=== PATIENT | male | born 1950 | race Caucasian/White ===

== ENCOUNTER → 2016-05-14 | Outpatient (CLI) | payer MEDICARE ==
[2015-09-05 14:57] VITALS: BP 119/63
[~2016-05-14] MED LIST: ACET500T33 PO; ASPI325T4 PO; CALC-52 PO; CEFD300C PO; CELE400C PO; HYDR-2762 PO; METAMUCIL425 GM PO; METO25TA4 PO; NAPR220C4 PO; NIAC500T9 PO; OMEG1CAP39 PO; OMEP20TA PO; PANT40TA5 PO; SAW450CA2 PO; SOLI5TAB PO; TAMS0.4C2 PO
[2016-05-14 12:45] LABS: BILIRUBIN,URINE NEGATIVE (NEG); GLUCOSE,URINE NEGATIVE (NEG); NITRITE,URINE NEGATIVE (NEG); PROTEIN,URINE NEGATIVE (NEG-TRACE); UROBILINOGEN,URINE 0.2 mg/dL (0.2 mg/dL)
[2016-05-14 13:04] LABS: BACTERIA,URINE 0 /HPF (0-FEW); WBC,URINE OCC /HPF (0-4)
== END | disposition home or self-care (01) ==
LOC: LAB 11:38
PROVIDERS: ATTEND Nurse Practitioner Occupational Health
DX: Z12.5 Encounter for screening for malignant neoplasm of prostate (principal)
CPT/HCPCS: 36415; 81001; G0103

== ENCOUNTER → 2016-05-21 | Outpatient (CLI) | payer MEDICARE ==
[2015-09-05 14:57] VITALS: BP 119/63
[~2016-05-21] MED LIST changes: +DABI150C PO; +FLEC100T PO; +GABA-586 PO
[2016-07-03 07:14] LABS: ALBUMIN 3.6 g/dL (3.4-5.0); ALBUMIN/GLOBULIN RATIO 1.1 (1.0-1.7); TOTAL PROTEIN 6.9 g/dL (6.4-8.2)
[2016-07-03 07:15] LABS: CALCIUM 9.4 mg/dL (8.5-10.1); CREATININE 1.3 mg/dL (0.7-1.3); GFR 55.1; POTASSIUM 4.3 mmol/L (3.5-5.1); TOTAL BILIRUBIN 0.5 mg/dL (0.2-1.0)
== END | disposition home or self-care (01) ==
LOC: LAB 09:54
PROVIDERS: ATTEND Internal Medicine Cardiovascular Disease
DX: I48.0 Paroxysmal atrial fibrillation (principal)
CPT/HCPCS: 36415; 80053

== ENCOUNTER → 2016-05-22 | Outpatient (CLI) | payer MEDICARE ==
[2015-09-05 14:57] VITALS: BP 119/63
[2016-05-21 10:36] LABS: ALBUMIN 3.6 g/dL (3.4-5.0); ALBUMIN/GLOBULIN RATIO 1.1 (1.0-1.7); CALCIUM 9.4 mg/dL (8.5-10.1); CREATININE 1.3 mg/dL (0.7-1.3); GFR 55.1; POTASSIUM 4.3 mmol/L (3.5-5.1); TOTAL BILIRUBIN 0.5 mg/dL (0.2-1.0); TOTAL PROTEIN 6.9 g/dL (6.4-8.2)
[~2016-05-22] MED LIST changes: -DABI150C PO; -FLEC100T PO; -GABA-586 PO
--- NOTE | 2016-05-22 13:56 | RAD ---
EXAM: Renal sonogram. HISTORY: Enlarged prostate. TECHNIQUE: Sonographic imaging of the kidneys and bladder was performed. COMPARISON: None. FINDINGS: The right kidney measures 11.7 cm [id number] and the left kidney measures 11.4 cm [id number]-sy-jrgc. No solid or cystic renal lesion is seen. There is no hydronephrosis. The aorta and inferior cava are partially obscured due to bowel gas. The ureteral jets are both seen. The prostate measures 5.8 cm in maximum dimension with a volume of 65 cc. IMPRESSION: 1. Sonographically unremarkable kidneys. 2. Mildly enlarged prostate with a volume of 65 cc.
== END | disposition home or self-care (01) ==
LOC: US 12:22
PROVIDERS: ATTEND Nurse Practitioner Occupational Health
DX: N40.1 Benign prostatic hyperplasia with lower urinary tract symptoms (principal)
CPT/HCPCS: 36415; 76770; 80053

== ENCOUNTER 2016-06-21 06:39 | Day surgery (SDC) | payer MEDICARE ==
[~2016-06-21 06:39] MED LIST changes: +DABI150C PO; +FLEC100T PO; +GABA-586 PO
[2016-06-21] MEDS ORDERED: IV RINGERS,LACTATED 1000ML 1,000 ML IV SCH (07:00)
[2016-06-21] MEDS ORDERED: LIDOCAINE 2% TOPICAL JELLY 30GM TUBE. TP ONE (07:38)
[2016-06-21] MEDS ORDERED: LIDOCAINE 2% VISCOUS 15 ML SOLUTION. ONE (07:38)
[2016-06-21] MEDS ORDERED: BENZOCAINE ONE 20% MUCOSAL SPRAY. (07:38)
[2016-06-21 08:49] VITALS: BP 116/59
--- NOTE | 2016-06-21 09:48 | CARD ---
APPROVED REPORT EXAM: Transesophageal echocardiogram with color flow Doppler. INDICATION Atrial Fibrillation Reason For Test : Preoperative evaluation. PROCEDURE After obtaining informed consent, patient underwent transesophageal echo in the PACU. Type of Sedation : General Anesthesia Sedation was provided by anesthesiologist, see EMR for medications administered. Transesophageal probe was inserted and advanced into esophagus by Phong Molina MD. The JOSE was performed without complications. Throughout the procedure, the blood pressure, pulse oximetry, cardiac rhythm, and rate were monitored . The patient tolerated the procedure without adverse effects. Recovery from conscious sedation was une ventful and vital signs were stable. LEFT VENTRICLE The left ventricle is normal size. There is normal left ventricular wall thickness. Left ventricle sy stolic function is normal. The Ejection Fraction is 50-55%. There is normal LV segmental wall motion. No left ventricle thrombus noted on this study. RIGHT VENTRICLE The right ventricle is normal size. The right ventricular systolic function is normal. ATRIA The left atrium is mildly dilated. The right atrium size is normal. The interatrial septum is intact with no evidence for an atrial septal defect or patent foramen ovale as noted on 2-D or Doppler imagi ng. There is no thrombus noted in the left atrial appendage. AORTIC VALVE The aortic valve is normal in structure and function. The aortic valve is trileaflet. Doppler and Col or Flow revealed no significant aortic regurgitation. There is no significant aortic valvular stenosi s. MITRAL VALVE The mitral valve is normal in structure. There is no mitral valve stenosis. Doppler and Color Flow re vealed mild mitral regurgitation. TRICUSPID VALVE The tricuspid valve is normal in structure and function. Doppler and Color Flow revealed no tricuspid valve regurgitation noted. PULMONIC VALVE The pulmonic valve is not well visualized. GREAT VESSELS The aortic root is normal in size. The ascending aorta is normal in size. Normal pulmonary venous emerald w (Doppler). The IVC was visualized and appears normal in size. The SVC was visualized and appears no rmal in size. Critical Notification Critical Value: No <Conclusion> Left ventricle systolic function is normal. The Ejection Fraction is 50-55%. There is normal LV segmental wall motion. The left atrium is mildly dilated. The interatrial septum is intact with no evidence for an atrial septal defect or patent foramen ovale as noted on 2-D or Doppler imaging. There is no thrombus noted in the left atrial appendage. Smoke is noted in the LA and NATHALIE suggestive of slow flow state.
== END 2016-06-21 09:17 | disposition home or self-care (01) ==
LOC: SURG 06:39
PROVIDERS: ATTEND Internal Medicine Cardiovascular Disease
DX: I48.91 Unspecified atrial fibrillation (principal); I51.9 Heart disease, unspecified; M19.90 Unspecified osteoarthritis, unspecified site; Z87.440 Personal history of urinary (tract) infections; Z96.612 Presence of left artificial shoulder joint; Z87.891 Personal history of nicotine dependence
CPT/HCPCS: 76376; 93312; 93325

== ENCOUNTER → 2016-09-04 | Outpatient (CLI) | payer MEDICARE ==
[~2016-09-04] MED LIST changes: -ASPI325T4 PO; +ASPI325T8 PO; +CONTRAST GIVEN MC PRN; +IOHEXOL 300 MG/ML 75 ML VIAL IV ONE; +OMEG-152 PO; -OMEG1CAP39 PO; -OMEP20TA PO; +OMEP20TA8 PO; -SOLI5TAB PO; +SOLI5TAB2 PO
[2016-09-04 08:12] LABS: CREATININE 1.2 mg/dL (0.7-1.3); GFR 60.2
--- NOTE | 2016-09-04 11:00 | RAD ---
CT of the abdomen and pelvis with and without contrast, (CT urogram) 09/04/2016: History: Hematuria Multidetector CT imaging was performed prior to and following an IV bolus injection of iodinated contrast material. The postcontrast scans were obtained through the kidneys in the nephrographic phase and through the entire urinary tract in an excretory phase. 3-D MIP reconstructions of the urinary tract were produced from the excretory phase data. No oral contrast material was administered for this exam. No intrarenal calculi were identified. There is no evidence of a renal mass. There are prominent extrarenal pelves bilaterally. The ureters are not dilated. No ureteral calculus is seen. 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 There is moderate diffuse thickening of the bladder carias. The prostate gland is enlarged measuring 5.5 cm in width. Several prostatic calcifications are noted. There are mild reticulonodular opacities in the lung bases which have progressed since 03/22/2015. This may represent worsening interstitial lung disease although superimposed interstitial edema and/or infection cannot be excluded. No hepatic abnormality is detected. There are faint radiopacities along the posterior aspect of the gallbladder suggesting tiny calculi. These were also evident on the previous study of 03/22/2015. No pancreatic abnormality is detected. The spleen is of normal size. No adrenal abnormality is detected. There is moderate aortoiliac calcific plaquing without evidence of aneurysm. No abdominal or pelvic adenopathy is seen. There is colonic diverticulosis, most extensive in the sigmoid and descending colon. No paracolonic inflammatory process is seen. No free fluid is evident in the abdomen or pelvis. There is moderate multilevel degenerative change in the spine. There is bilateral spondylolysis at L5. There is slight associated spondylolisthesis at L5-S1. IMPRESSION: 1. No significant renal abnormality is detected. 2. Duplication of the distal right ureter. 3. Moderate diffuse bladder wall thickening probably secondary to chronic bladder outlet obstruction in this patient with an enlarged prostate gland. 4. Probable cholelithiasis. 5. Extensive colonic diverticulosis. 6. Worsening mild bibasilar reticulonodular opacities. PQRS Compliance Statement: One or more of the following individualized dose reduction techniques were utilized for this examination: 1. Automated exposure control 2. Adjustment of the mA and/or kV according to patient size 3. Use of iterative reconstruction technique
== END | disposition home or self-care (01) ==
LOC: CT 08:35
PROVIDERS: ATTEND Nurse Practitioner Occupational Health
DX: R31.9 Hematuria, unspecified (principal)
CPT/HCPCS: 36415; 74178; 82565; Q9967

== ENCOUNTER → 2017-07-12 | Outpatient (CLI) | payer MEDICARE | END | disposition home or self-care (01) | LOC: CT 09:21 | DX: J84.9 Interstitial pulmonary disease, unspecified (principal); I25.10 Atherosclerotic heart disease of native coronary artery without angina pectoris; J84.10 Pulmonary fibrosis, unspecified; R91.8 Other nonspecific abnormal finding of lung field | CPT/HCPCS: 71250 ==

== ENCOUNTER → 2018-07-04 | Outpatient (CLI) | payer MEDICARE ==
[~2018-07-04] MED LIST changes: -CONTRAST GIVEN MC PRN; -GABA-586 PO; +GABA300C18 PO; -HYDR-2762 PO; +HYDR-2765 PO; -IOHEXOL 300 MG/ML 75 ML VIAL IV ONE; -SAW450CA2 PO; +SAW450CA7 PO
--- NOTE | 2018-07-04 14:18 | RAD ---
CT of the chest without contrast, 07/04/2018: HISTORY: Interstitial lung disease Noncontrast scans were obtained as requested and compared to a study from 07/12/2017. There are ongoing reticular opacities in the periphery of both lungs with dominant involvement of the lower lobes. There has been slight interval worsening in several areas. There is a stable linear opacity in the left upper chest compatible with a scar. No pulmonary mass or dense consolidation is seen. There is no evidence of pleural fluid. There is mild calcific plaquing of the thoracic aorta without evidence of aneurysm. Several coronary artery calcifications are noted. There is mild mediastinal adenopathy which has worsened slightly. For example a subcarinal lymph node which measured 1.3 cm in greatest AP dimension on the previous study now measures 1.6 cm. A small right paratracheal lymph node which measured 8 mm on the previous study now measures 11 mm. Several small radiopacities are now evident in the dependent aspect of the gallbladder compatible with cholelithiasis. IMPRESSION: 1. Slight interval worsening of the interstitial lung disease since 07/12/2017. 2. Mild mediastinal adenopathy is worsened slightly. 3. Cholelithiasis PQRS Compliance Statement: One or more of the following individualized dose reduction techniques were utilized for this examination: 1. Automated exposure control 2. Adjustment of the mA and/or kV according to patient size 3. Use of iterative reconstruction technique Electronically signed by: Isaias Pizarro MD (07/04/2018 2:15 PM) [facility]
== END | disposition home or self-care (01) ==
LOC: CT 15:43
PROVIDERS: ATTEND Internal Medicine Critical Care Medicine
DX: J84.9 Interstitial pulmonary disease, unspecified (principal); R59.0 Localized enlarged lymph nodes; K80.20 Calculus of gallbladder without cholecystitis without obstruction; R91.8 Other nonspecific abnormal finding of lung field; I70.0 Atherosclerosis of aorta; I25.10 Atherosclerotic heart disease of native coronary artery without angina pectoris
CPT/HCPCS: 71250

== ENCOUNTER → 2019-09-28 | Outpatient (CLI) | payer BC, MEDICARE ==
[~2019-09-28] MED LIST changes: -PANT40TA5 PO; +PANT40TA77 PO
--- NOTE | 2019-09-28 10:59 | CARD ---
MR#: [id number] Date of Study: 09/28/2019 Ordering Physician: REBEKAH PADRON, Referring Physician: REBEKAH PADRON Tech: Toya Elizalde RDCS APPROVED REPORT EXAM: Two-dimensional and M-mode echocardiogram with Doppler and color Doppler. Other Information Quality : Good INDICATION Paroxysmal Atrial Fibrillation 2D DIMENSIONS RVDd2.8 (2.9-3.5cm)Left Atrium(2D)3.9 (1.6-4.0cm) IVSd0.8 (0.7-1.1cm)Aortic Root(2D)3.0 (2.0-3.7cm) LVDd4.6 (3.9-5.9cm)LVOT Diameter2.0 (1.8-2.4cm) PWd0.6 (0.7-1.1cm)LVDs2.9 (2.5-4.0cm) FS (%) 36.9 %SV65.5 ml LVEF(%)60.0 (>50%) Aortic Valve AoV Peak Gilmar.127.3cm/sAoV VTI23.4cm AO Peak GR.6.5mmHgLVOT VTI 24.74cm AO Mean GR.3mmHgAVA (VTI)3.18cm2 AI P 1/2 Utct808sx Mitral Valve MV E Bnqbewqw57.4cm/sMV DECEL AVNZ279yc MV A Wbogsppd53.1cm/sE/A Ratio1.2 TDI Lateral E' P. V3.48cm/sMedial E' P. V5.41cm/s E/Lateral E'22.2E/Medial E'14.3 Tricuspid Valve TR P. Dqkhtsdx280yo/sRAP EVHEALGS9lvBd TR Peak Gr.80yyLqUCDQ58utBw Pulmonary Vein S1 Bfjlrdtm53.9cm/sS2 Nytdbces07.91cm/s D2 Gpdabzrn54.9cm/s LEFT VENTRICLE The left ventricle is normal size. There is normal left ventricular wall thickness. The left ventricu lar systolic function is normal. The Ejection Fraction is 55-60%. There is normal LV segmental wall m otion. Transmitral Doppler flow pattern is Grade II-pseudonormal filling dynamics. RIGHT VENTRICLE The right ventricle is normal size. The right ventricular systolic function is normal. ATRIA The left atrium is mildly dilated. The right atrium size is normal. The interatrial septum is intact with no evidence for an atrial septal defect or patent foramen ovale as noted on 2-D or Doppler imagi ng. AORTIC VALVE The aortic valve is calcified but opens well. Doppler and Color Flow revealed mild aortic regurgitati on. There is no significant aortic valvular stenosis. MITRAL VALVE The mitral valve is calcified but opens well. There is no evidence of mitral valve prolapse. There is no mitral valve stenosis. Doppler and Color-flow revealed trace mitral regurgitation. TRICUSPID VALVE The tricuspid valve is normal in structure and function. Doppler and Color Flow revealed mild tricusp id regurgitation. The PA pressure was estimated at 29 mmHg. There is no tricuspid valve stenosis. PULMONIC VALVE The pulmonary valve is normal in structure and function. Doppler and Color Flow revealed no pulmonic valvular regurgitation. There is no pulmonic valvular stenosis. GREAT VESSELS The aortic root is normal in size. The ascending aorta is mildly dilated at 3.5 cm. The IVC is normal in size and collapses >50% with inspiration. PERICARDIAL EFFUSION There is no evidence of significant pericardial effusion. Critical Notification Critical Value: No <Conclusion> The left ventricular systolic function is normal. The Ejection Fraction is 55-60%. There is normal LV segmental wall motion. Mild aortic regurgitation. Trace mitral regurgitation. Mild tricuspid regurgitation. The PA pressure was estimated at 29 mmHg. There is no evidence of significant pericardial effusion. Signed by : Rebekah Padron, Electronically Approved : 09/28/2019 10:59:04
== END | disposition home or self-care (01) ==
LOC: ECHO 09:36
PROVIDERS: ATTEND Internal Medicine Cardiovascular Disease
DX: I08.3 Combined rheumatic disorders of mitral, aortic and tricuspid valves (principal); I48.0 Paroxysmal atrial fibrillation
CPT/HCPCS: 93306

== ENCOUNTER → 2019-12-11 | Outpatient (CLI) | payer BC ==
--- NOTE | 2019-12-11 12:19 | RAD ---
Noncontrast CT scan of the chest compared to similar exam dated 07/04/2018 for interstitial lung disease. TECHNIQUE: Contiguous axial CT images are obtained through the chest. No IV contrast was administered. Sagittal and coronal reformations are evaluated. FINDINGS: Postsurgical changes of a left shoulder arthroplasty are noted. No significant osseous abnormalities are evident. Cholelithiasis is noted. No other gross abnormalities of the upper abdominal organs, though evaluation is limited by lack of IV contrast. Heart size within normal limits. Coronary artery calcification are again seen. Numerous small pretracheal lymph nodes are again evident, but appear smaller today, with no new lymph nodes and no nodules meeting size criteria for definite pathologic enlargement. No suspicious hilar or axillary lymphadenopathy. Subpleural interstitial changes in the lung bases persist but are improved today and overall extent and conspicuity. No honeycombing is evident. No pleural effusions seen. No suspicious nodules or masses. There is a small focal pleural-based area of confluence in the posterior left lower lobe that may represent a small pneumonic infiltrate or area of atelectasis or. There are 2 stable 4 mm nodules in the left upper lung, and there is a new 4 mm nodule in the right lower lobe seen on series 3 axial image #32 which is some indistinct margins and is likely infectious or inflammatory rather than neoplastic. Attention on follow-up imaging is recommended. IMPRESSION: 1. Persistent but improved subpleural interstitial changes in the lung bases. 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 2. Improved appearance of mediastinal adenopathy today, with no new or suspicious lymph nodes identified. 3. Persistent cholelithiasis with no evidence of acute cholecystitis. 4. Tiny 4 mm nodule in the right lower lobe which is new, but likely infectious or inflammatory. Attention on next follow-up exam is encouraged. PQRS Compliance Statement: One or more of the following individualized dose reduction techniques were utilized for this examination: 1. Automated exposure control 2. Adjustment of the mA and/or kV according to patient size 3. Use of iterative reconstruction technique Electronically signed by: Rey Latham MD (12/11/2019 12:16 PM) [id number]
== END ==
LOC: CT 15:43
PROVIDERS: ATTEND Internal Medicine Critical Care Medicine
DX: R91.1 Solitary pulmonary nodule (principal); K80.20 Calculus of gallbladder without cholecystitis without obstruction; I25.10 Atherosclerotic heart disease of native coronary artery without angina pectoris; Z98.1 Arthrodesis status
CPT/HCPCS: 71250

== ENCOUNTER → 2021-03-15 | Outpatient (CLI) | payer BC ==
--- NOTE | 2021-03-15 16:05 | CARD ---
MR#: [id number] Date of Study: 03/15/2021 Ordering Physician: DONTRELL HICKEY, Referring Physician: DONTRELL HICKEY, Tech: Tabatha Castro [facility] APPROVED REPORT EXAM: Two-dimensional and M-mode echocardiogram with Doppler and color Doppler. Other Information Quality : GoodHR: 54bpm Rhythm : NSR INDICATION COPD Dyspnea 2D DIMENSIONS RVDd3.3 (2.9-3.5cm)Left Atrium(2D)4.0 (1.6-4.0cm) IVSd1.1 (0.7-1.1cm)Aortic Root(2D)3.3 (2.0-3.7cm) LVDd4.7 (3.9-5.9cm)LVOT Diameter2.1 (1.8-2.4cm) PWd1.1 (0.7-1.1cm)LVDs3.2 (2.5-4.0cm) FS (%) 32.1 %SV61.8 ml Aortic Valve AoV Peak Gilmar.139.8cm/sAoV VTI28.6cm AO Peak GR.7.8mmHgLVOT Peak Gilmar.108.6cm/s AO Mean GR.4mmHgAVA (VMAX)2.74cm2 Mitral Valve MV E Geduvnoc72.4cm/sMV DECEL EHSW699hk MV A Edawimux04.7cm/sE/A Ratio1.2 Pulmonary Valve PV Peak Ahlzjbzx975.8cm/s Tricuspid Valve TR P. Ogyhbhhr469cc/sTR Peak Gr.23mmHg LEFT VENTRICLE The left ventricle is normal size. There is borderline to mild concentric left ventricular hypertroph y. The left ventricular systolic function is normal and the ejection fraction is within normal range. LV ejection fraction of 50 to 55%. There is normal LV segmental wall motion. The left ventricular d iastolic function and filling is normal for age. RIGHT VENTRICLE The right ventricle is normal size. There is normal right ventricular wall thickness. The right ventr icular systolic function is normal. ATRIA The left atrium size is normal. The right atrium size is normal. The interatrial septum is intact wit h no evidence for an atrial septal defect or patent foramen ovale as noted on 2-D or Doppler imaging. AORTIC VALVE The aortic valve is normal in structure and function. Doppler and Color Flow revealed no significant aortic regurgitation. There is no significant aortic valvular stenosis. MITRAL VALVE The mitral valve is normal in structure and function. There is no evidence of mitral valve prolapse. There is no mitral valve stenosis. Doppler and Color-flow revealed trace mitral regurgitation. TRICUSPID VALVE The tricuspid valve is normal in structure and function. Doppler and Color Flow revealed trace tricus pid regurgitation. Estimated PAP 25-28 mmHg. There is no tricuspid valve stenosis. PULMONIC VALVE The pulmonary valve is normal in structure and function. Doppler and Color Flow revealed mild pulmoni c valvular regurgitation. GREAT VESSELS The aortic root is normal in size. The ascending aorta is normal in size. The IVC is normal in size a nd collapses >50% with inspiration. PERICARDIAL EFFUSION There is no evidence of significant pericardial effusion. Critical Notification Critical Value: No <Conclusion> The left ventricle is normal size. The left ventricular systolic function is normal and the ejection fraction is within normal range. LV ejection fraction of 50 to 55%. There is borderline to mild concentric left ventricular hypertrophy. Doppler and Color Flow revealed no significant aortic regurgitation. There is no significant aortic valvular stenosis. Doppler and Color-flow revealed trace mitral regurgitation. Doppler and Color Flow revealed trace tricuspid regurgitation. Estimated PAP 25-28 mmHg. Signed by : En Mitchell MD Electronically Approved : 03/15/2021 16:04:41
== END ==
LOC: ECHO 12:40
PROVIDERS: ATTEND Internal Medicine Cardiovascular Disease
DX: I37.1 Nonrheumatic pulmonary valve insufficiency (principal); I51.7 Cardiomegaly; I48.0 Paroxysmal atrial fibrillation
CPT/HCPCS: 93306; C8929

== ENCOUNTER → 2021-04-06 | Outpatient (CLI) | payer BC ==
--- NOTE | 2021-04-06 15:45 | CARD ---
MR#: [id number] Date of Study: 04/06/2021 Ordering Physician: DONTRELL HICKEY, Referring Physician: DONTRELL HICKEY, Tech: APPROVED REPORT EXAM Loop Recorder Reason for procedure: Monitoring of atrial fibrillation Procedure details: 70-year-old male presented to the procedure suite for a planned outpatient loop recorder implantation for monitoring of atrial fibrillation. The left chest was prepped and draped in usual sterile fashi on. Under 1% lidocaine local anesthesia a 0.5 inch incision was made. Next a subcutaneous tunnel wa s created and a [employer] implantable loop recorder with serial number [id number] was placed with R wave of 0.25 mV. The incision was then closed with Steri-Strips. No acute complications. CONCLUSION 1. Successful plantation of a [employer] loop recorder for monitoring of atrial fibrillation. Signed by : Dontrell Hickey, Electronically Approved : 04/06/2021 15:45:22
== END | disposition home or self-care (01) ==
LOC: LINQ 10:53
PROVIDERS: ATTEND Internal Medicine Cardiovascular Disease
DX: I48.91 Unspecified atrial fibrillation (principal); K21.9 Gastro-esophageal reflux disease without esophagitis; N40.0 Benign prostatic hyperplasia without lower urinary tract symptoms; M19.90 Unspecified osteoarthritis, unspecified site; Z85.828 Personal history of other malignant neoplasm of skin; Z87.440 Personal history of urinary (tract) infections; Z87.891 Personal history of nicotine dependence; Z72.89 Other problems related to lifestyle; Z88.8 Allergy status to other drugs, medicaments and biological substances; Z88.0 Allergy status to penicillin; Z88.1 Allergy status to other antibiotic agents; Z98.890 Other specified postprocedural states
CPT/HCPCS: 33285; C1764

== ENCOUNTER → 2021-04-21 | Outpatient (CLI) | payer BC ==
--- NOTE | 2021-04-21 12:17 | RAD ---
CT THORAX WO dated 04/21/2021 10:33 AM Indication:Reason: ILD/ NODULE / Spl. Instructions: / History: Comparison: CT 12/11/2019. Technique: Helical noncontrast images were performed. One or more of the following individualized dose reduction techniques were utilized for this examinat ion: 1. Automated exposure control 2. Adjustment of the mA and/or kV according to patient size 3. Use of iterative reconstruction technique Findings: Increased peripheral markings in the lower lobes persist and appear stable. A small right lower lobe nodule described on the prior study previously has resolved. There is now suggestion of a possible ne w right lower lobe nodule posteriorly, although within an area of probable fibrosis. This region amado ures about 8 x 6 mm (image 154 axial series 3). No other significant new parenchymal abnormality is s een. The central airways appear normal. No enlarged lymph nodes are seen. There are some coronary art jovani calcification particularly through the LAD distribution. Images through the upper abdomen show possible small gallstones in the gallbladder. No other abnormal ity is seen. IMPRESSION: Continued findings consistent with mild interstitial fibrosis. No progression is noted. There is suggestion of a possible new right lower lobe nodule. This could be reevaluated on follow-up CT in 3-6 months. Electronically signed by: En Zhong Jr., MD (04/21/2021 12:15 PM) [facility]
== END ==
LOC: CT 10:11
PROVIDERS: ATTEND Internal Medicine Critical Care Medicine
DX: R91.1 Solitary pulmonary nodule (principal); I25.10 Atherosclerotic heart disease of native coronary artery without angina pectoris
CPT/HCPCS: 71250